=== PATIENT | female | born 1990 | race Caucasian/White ===

== ENCOUNTER 2018-09-13 15:10 | Emergency (ER) ==
[2018-09-13 15:19] VITALS: BP 140/95; TEMP 97; BMI 31.8
[2018-09-13] MEDS ORDERED: ZOFRAN 4 MG/2 ML IVP STA (16:03)
[2018-09-13] MEDS ORDERED: TORADOL IM STA (16:03)
--- NOTE | 2018-09-13 16:11 | ED.PDOC ---
General ED Provider: Dr. RICHARD GALLEGOS Chief Complaint: Tooth Problem Stated Complaint: Severe Dental pain. Patient tearful and complaining of severe pain in face and along Rt Maxilla. Long standing dental issues and advanced dental carries and decay. States h x of Meth abuse. Time Seen by Physician: 16:00 Mode of Arrival: Walk-In Information Source: Patient Exam Limitations: No limitations Nursing and Triage Documentation Reviewed and Agree: Yes Does patient meet sepsis criteria?: No System Inflammatory Response Syndrome: Not Applicable Sepsis Protocol: For patient's 13 years and over: Temp is 96.8 and below OR 101 and greater Pulse >90 BPM Resp >20/minute Acutely Altered Mental Status Are patient's symptoms suggestive of a new infection, such as: -Pneumonia -Skin, Soft Tissue -Endocarditis -UTI -Bone, Joint Infection -Implantable Device -Acute Abdominal Infection -Wound Infection -Meningitis -Blood Stream Catheter Infection -Unknown EENT Complaint Exam - Dental/Oral Complaint/Exam Mechanism of Injury: No known trauma Onset/Duration: 1 wk Symptoms Are: Still present Timing: Constant Initial Severity: Moderate Current Severity: Severe Location: Rt side of Maxilla and facial region Character: Reports: Throbbing Aggravating: Reports: Cold, Chewing, Exertion Alleviating: Reports: None Associated Signs and Symptoms: Reports: Discharge, Foul taste in mouth Related History: Reports: Similar episode, Previous tooth problem Dental/Oral Surgical History: Reports: None Review of Systems - Review Of Systems Constitutional: Reports: No symptoms Eyes: Reports: No symptoms Ears, Nose, Mouth, Throat: Reports: No symptoms, Mouth pain, Mouth swelling Respiratory: Reports: No symptoms Cardiac: Reports: No symptoms GI: Reports: No symptoms : Reports: No symptoms Musculoskeletal: Reports: No symptoms Skin: Reports: No symptoms Neurological: Reports: No symptoms Endocrine: Reports: No symptoms Hematologic/Lymphatic: Reports: No symptoms All Other Systems: Reviewed and Negative Past Medical History - Past Medical History Previously Healthy: Yes Endocrine: Reports: None Cardiovascular: Reports: None Respiratory: Reports: None Hematological: Reports: None Gastrointestinal: Reports: None Genitourinary: Reports: None Neuro/Psych: Reports: None Musculoskeletal: Reports: None Cancer: Reports: None Last Menstrual Period: unsure - Surgical History General Surgical History: Reports: None - Family History Family History: Reports: None - Social History Smoking Status: Current some day smoker Hx Substance Use: Yes (marjuanan) Alcohol Screening: None - Immunizations Tetanus Shot up to Date: Yes Physical Exam - Physical Exam Appearance: Ill-appearing Ill-appearing: Mild Pain Distress: Moderate Eyes: HAFSA ENT: Ears normal Respiratory: Airway patent, Breath sounds clear, Breath sounds equal, Respirations nonlabored Cardiovascular: RRR, Pulses normal, No rub, No murmur GI/: Soft, Nontender, No masses, Bowel sounds normal, No Organomegaly Musculoskeletal: Normal strength, ROM intact, No edema, No calf tenderness Skin: Warm, Dry, Normal color Neurological: Sensation intact, Motor intact, Reflexes intact, Cranial nerves intact, Alert, Oriented Psychiatric: Affect appropriate, Mood appropriate, Anxious Critical Care Note - Critical Care Note Total Time (mins): 30 Course - Course Hematology/Chemistry: 09/13/18 16:20 09/13/18 16:20 Vital Signs: Temp Pulse Resp BP Pulse Ox 09/13/18 15:13 97 F L 88 22 140/95 H 100 Departure - Departure Time of Disposition: 17:30 Disposition: HOME SELF-CARE Discharge Problem: Dental abscess, Methamphetamine abuse Instructions: Dental Abscess (ED) Condition: Fair Pt referred to PMD for follow-up: Yes (See Dentist /oral surgeon for evaluation and treatment) IPMP verified?: No Additional Instructions: Take antibiotics as directed Toradol for pain as needed Prescriptions: Amoxicillin/Potassium Clav [Augmentin 875-125 mg Tab] 1 tab PO Q12HR #14 tablet Ketorolac Tromethamine [Toradol] 10 mg PO Q6H PRN #20 tablet PRN Reason: Dental pain Allergies/Adverse Reactions: Allergies No Known Drug Allergies Adverse Reaction (Verified 09/13/18 15:20) Home Medications: Ambulatory Orders Amoxicillin/Potassium Clav [Augmentin 875-125 mg Tab] 1 tab PO Q12HR #14 tablet 09/13/18 Ketorolac Tromethamine [Toradol] 10 mg PO Q6H PRN #20 tablet 09/13/18 Disposition Discussed With: Patient
[2018-09-13] MEDS ORDERED: TORADOL IVP STA (16:18)
[2018-09-13] MEDS ORDERED: UNASYN 1.5 GM in SODIUM CHLORIDE 50 ML IV STA (16:19)
[2018-09-13] MEDS ORDERED: UNASYN ONE (16:25)
--- NOTE | 2018-09-13 17:16 | CT ---
EXAM: CT maxillofacial with and without IV contrast. HISTORY: Severe facial pain associated with dental abscess. PROCEDURE: Contiguous axial CT images of the face and orbits with and without IV contrast with coron al and sagittal reformats. FINDINGS: There are lucencies surrounding the roots of the right maxillary lateral incisor and left maxillary lateral incisor and second premolar suspicious for tooth abscesses. No soft tissue fluid c ollection or evidence of soft tissue abscess. The temporomandibular joints are maintained. There is mucosal thickening in the paranasal sinuses. The orbits are normal in appearance. Impression: Lucencies surrounding the roots of the bilateral maxillary lateral incisors and left maxi llary second premolar, suspicious for tooth abscesses. Paranasal sinusitis.
== END 2018-09-13 18:00 | disposition home or self-care (01) ==
LOC: ED 15:10
DX: K08.89 Other specified disorders of teeth and supporting structures (principal); K04.7 Periapical abscess without sinus; K02.7 Dental root caries; F15.10 Other stimulant abuse, uncomplicated; F17.210 Nicotine dependence, cigarettes, uncomplicated
CPT/HCPCS: 36415; 80053; 80306; 81001; 84703; 85025; 96366; 96374; 96375; 99283

== ENCOUNTER 2019-03-17 09:22 | Observation (INO) ==
[2019-03-17 10:43] LABS: URINE PREGNANCY TEST NEGATIVE (NEGATIVE)
--- NOTE | 2019-03-17 11:25 | CT ---
EXAM: CT ABDOMEN AND PELVIS HISTORY: Right-sided flank pain TECHNIQUE: CT abdomen and pelvis without intravenous contrast. Images were reconstructed using 3 mm section thickness. Reformations were prepared. COMPARISON: None FINDINGS: There is mild to moderate fat stranding around the right kidney and the upper ureter. Mild hydroneph rosis and upper ureteral dilatation. There is no visible nephrolithiasis or ureteral calculus. Left kidney is normal. Normal urinary bladder. No cruz ascites is seen. Within limits of this unenhanced exam, the liver and spleen are within normal limits. Gallbladder is absent. Pancreas and adrenal glands appear normal. Normal abdominal aorta. Stomach is unremarkabl e. Normal appendix and general bowel gas pattern. Uterus is unremarkable. There is no abdominal wa ll hernia. The bones are within normal limits and lung bases are clear. There is no pneumoperitoneu m. IMPRESSION: There is perinephric fat stranding on the right with mild hydronephrosis and upper ureter al dilatation although no visible ureteral calculus or nephrolithiasis. Urinary bladder appeared nor mal. This may be related to recent passage of a calculus, an occult obstruction or collecting system /renal parenchymal infection. Correlate clinically.
--- NOTE | 2019-03-17 13:16 | ED.PDOC ---
General ED Provider: Dr. SKY WALLACE Chief Complaint: Abdominal Pain Stated Complaint: RIGHT FLANK PAIN RADIATING TO LOWER ABDOMEN HISTORY OF RENAL STONES IN THE PAST. Time Seen by Physician: 09:40 Mode of Arrival: Walk-In Information Source: Patient Exam Limitations: No limitations Primary Care Provider: RICHARD GRANT Nursing and Triage Documentation Reviewed and Agree: Yes Does patient meet sepsis criteria?: No If yes, has appropriate treatment been initiated?: No System Inflammatory Response Syndrome: Not Applicable Sepsis Protocol: For patient's 13 years and over: Temp is 96.8 and below OR 101 and greater Pulse >90 BPM Resp >20/minute Acutely Altered Mental Status Are patient's symptoms suggestive of a new infection, such as: -Pneumonia -Skin, Soft Tissue -Endocarditis -UTI -Bone, Joint Infection -Implantable Device -Acute Abdominal Infection -Wound Infection -Meningitis -Blood Stream Catheter Infection -Unknown Musculoskeletal Complaint Exam Back Pain Complaint/Exam Mechanism of Injury: Reports No known trauma Onset/Duration: 1 DAY Symptoms Are: Still present Timing: Intermittent Episodes Lasting: Hours Initial Severity: Moderate Current Severity: Moderate Location: Reports Discrete (R FLANK) Character: Reports Spasmodic Alleviating: Reports None Associated Signs and Symptoms: Reports Abdominal pain and Flank pain; Denies Bruising, Fever, Weakness, Numbness, Tingling, Bladder incontinence and Bowel incontinence Related History: Reports Similar episode (RENAL STONE) TAD Risk Factors: Reports None AAA Risk Factors: Reports None Cauda Equina Risk Factors: Reports None Epidural Abcess Risk Factors: Reports None Related Surgical History: Reports None Focal Tenderness: No Paraspinal Muscle Tenderness: No Paraspinal Muscle Spasm: No Scoliosis: No Lordosis: No Kyphosis: No SLR Test: Right Negative and Left Negative Hip Motion Testing Pain: Right Negative and Left Negative Focal Weakness: Present None Focal Sensory Loss: Present None Gait: Present Normal Differential Diagnoses: Renal Colic and Other (PYLONEPHRITIS) Review of Systems Review Of Systems Constitutional: Reports No symptoms Eyes: Reports No symptoms Ears, Nose, Mouth, Throat: Reports No symptoms Respiratory: Reports No symptoms Cardiac: Reports No symptoms GI: Reports Abdominal pain : Reports No symptoms Musculoskeletal: Reports Back pain Skin: Reports No symptoms Neurological: Reports No symptoms Endocrine: Reports No symptoms Hematologic/Lymphatic: Reports No symptoms All Other Systems: Reviewed and Negative [facility] Social History Smoking and tobacco status: Current some day smoker Physical Exam Physical Exam Appearance: Well-appearing, No pain distress and Well-nourished Eyes: HAFSA, EOMI and Conjunctiva clear ENT: Ears normal, Nose normal and Oropharynx normal Respiratory: Airway patent, Breath sounds clear, Breath sounds equal and Respirations nonlabored Cardiovascular: RRR, Pulses normal, No rub and No murmur GI/: Soft, Nontender, No masses, Bowel sounds normal and No Organomegaly Musculoskeletal: Normal strength and ROM intact (RIGHT FLANK PAIN LOWER BACK) Skin: Warm, Dry and Normal color Neurological: Sensation intact, Motor intact, Reflexes intact, Cranial nerves intact, Alert and Oriented Psychiatric: Affect appropriate and Mood appropriate Interpretation Radiology Interpretation Radiology Interpretation By: Radiologist Radiology Results: Positive Exam Interpreted: Other (PERINEPHRIC STRANDING) Re-Evaluation Re-Evaluation Time of Re-Evaluation: 13:00 Vital Signs Stable: Yes Appearance: NAD Lungs: Clear Skin: Warm and Dry Neuro: Alert and Oriented X3 CV: RRR Physician Notification Case Discussed Physician Notified: west Time of Notification: 13:52 (admitt start 1 gram azactam bid daily ) Critical Care Note Critical Care Note Total Time (mins): 0 Course Course Hematology/Chemistry: 03/17/19 10:11 03/17/19 10:11 Orders, Labs, Meds: Lab Review 03/17/19 03/17/19 03/17/19 09:56 09:56 10:10 WBC RBC Hgb Hct MCV MCH MCHC RDW Coeff of Candice Plt Count Immature Gran % (Auto) Neut % (Auto) Lymph % (Auto) Powell % (Auto) Eos % (Auto) Baso % (Auto) Immature Gran # (Auto) Neut # (Auto) Lymph # (Auto) Powell # (Auto) Eos # (Auto) Baso # (Auto) Sodium Potassium Chloride Carbon Dioxide Anion Gap BUN Creatinine Estimated GFR (MDRD) BUN/Creatinine Ratio Glucose Calcium Total Bilirubin AST ALT Alkaline Phosphatase Total Protein Albumin Globulin Albumin/Globulin Ratio Urine Color Dark Urine Clarity Cloudy Urine pH 7.0 Ur Specific [place] 1.020 Urine Protein 2+ Urine Glucose (UA) Negative Urine Ketones Negative Urine Blood 1+ Urine Nitrite Positive Urine Bilirubin Negative Urine Urobilinogen 0.2 Ur Leukocyte Esterase 2+ Urine Microscopic RBC 5-10 Urine Microscopic WBC 20-30 Ur Squamous Epith Cells 5-10 Urine Bacteria 4+ Urine Mucus 1+ Urine Test Negative Influ A Molecular Assay Negative by naat Influ B Molecular Assay Negative by naat 03/17/19 03/17/19 10:11 10:11 WBC 13.16 H RBC 4.28 Hgb 12.3 Hct 36.9 L MCV 86.2 MCH 28.7 MCHC 33.3 RDW Coeff of Candice 13.4 Plt Count 180 Immature Gran % (Auto) 0.3 Neut % (Auto) 85.1 Lymph % (Auto) 9.5 L Powell % (Auto) 4.6 Eos % (Auto) 0.3 Baso % (Auto) 0.2 Immature Gran # (Auto) 0.0 Neut # (Auto) 11.2 H Lymph # (Auto) 1.3 Powell # (Auto) 0.6 Eos # (Auto) 0.0 Baso # (Auto) 0.0 Sodium 137.0 Potassium 3.46 L Chloride 103.1 Carbon Dioxide 27.2 Anion Gap 10.16 BUN 10.6 Creatinine 0.62 Estimated GFR (MDRD) 113.00 BUN/Creatinine Ratio 17.09 Glucose 129.7 H Calcium 8.90 Total Bilirubin 0.84 AST 34.0 ALT 37.0 H Alkaline Phosphatase 71.0 Total Protein 6.86 Albumin 3.78 Globulin 3.08 Albumin/Globulin Ratio 1.22 Urine Color Urine Clarity Urine pH Ur Specific Hope Urine Protein Urine Glucose (UA) Urine Ketones Urine Blood Urine Nitrite Urine Bilirubin Urine Urobilinogen Ur Leukocyte Esterase Urine Microscopic RBC Urine Microscopic WBC Ur Squamous Epith Cells Urine Bacteria Urine Mucus Urine Test Influ A Molecular Assay Influ B Molecular Assay Orders Category Date Time Status ACTIVITY .BR with BRP CARE 03/17/19 13:44 Active INTAKE & OUTPUT Q8HR CARE 03/17/19 13:44 Active INTAKE & OUTPUT Q8HR CARE 03/17/19 13:47 Active VITAL SIGNS Q4HR CARE 03/17/19 13:44 Active REGULAR DIET DIETARY 03/17/19 Dinner Ordered CBC W/ AUTO DIFF Stat LAB 03/17/19 10:11 Completed COMPREHENSIVE METABOLIC PANEL DAILY@0600 LAB 03/18/19 06:00 Ordered COMPREHENSIVE METABOLIC PANEL DAILY@0600 LAB 03/19/19 06:00 Ordered COMPREHENSIVE METABOLIC PANEL Stat LAB 03/17/19 10:11 Completed FLU A/B MOLECULAR Stat LAB 03/17/19 10:10 Completed MOLECULAR GROUP A STREP Stat LAB 03/17/19 10:10 Completed URINALYSIS C & S IF INDICATED Stat LAB 03/17/19 09:56 Completed URINE CULTURE Stat LAB 03/17/19 09:56 Received URINE Stat LAB 03/17/19 09:56 Completed Acetaminophen [Tylenol] MEDS 03/17/19 13:44 Active 650 mg PO Q4H PRN Ceftriaxone 1 gm Vial [Rocephin 1 gm Vial] MEDS 03/17/19 13:17 Discontinued 1 gm IV ONCE STA Ceftriaxone/D5w 1 gm Premix [Rocephin 1 gm/50 ml D5w] MEDS 03/18/19 09:00 Active 1 gm in 50 ml IV DAILY Sodium Chloride 0.9% [Sodium Chloride] 1,000 ml MEDS 03/17/19 14:00 Active IV 75 mls/hr CT ABDOMEN/PELVIS WO CONTRAST Stat RADS 03/17/19 10:03 Completed Medications Generic Name Dose Route Start Last Admin Trade Name Freq PRN Reason Stop Dose Admin Acetaminophen 650 mg 03/17/19 13:44 Tylenol PO Q4H PRN Mild Pain Sodium Chloride 1,000 mls @ 75 mls/hr 03/17/19 14:00 Sodium Chloride IV .[id number] BATOOL CEFTRIAXONE/D5W 1 GM PREMIX 1 gm in 50 mls @ 75 mls/hr 03/18/19 09:00 Rocephin 1 Gm/50 Ml D5w IV 03/21/19 08:59 DAILY BATOOL Discontinued Medications Generic Name Dose Route Start Last Admin Trade Name Freq PRN Reason Stop Dose Admin Ceftriaxone Sodium 1 gm 03/17/19 13:17 03/17/19 13:38 Rocephin 1 Gm Vial IV 03/17/19 13:18 1 gm ONCE STA Administration Vital Signs: Temp Pulse Resp BP Pulse Ox 03/17/19 13:41 100 F H 03/17/19 09:38 98.2 F 96 H 18 104/71 99 Discharge Plan Discharge Patient Disposition: ADMITTED INPATIENT Discharge Problem: Abdominal pain, Backache, Pyelonephritis ED Provider: SKY WALLACE Condition: Good
[2019-03-17] MEDS ORDERED: ROCEPHIN 1 GM VIAL IV STA (13:17)
[2019-03-17 15:07] VITALS: BMI 30.9
[2019-03-17] MEDS: TORADOL IVP PRN ×2 (15:41→23:42)
[2019-03-17] MEDS: AZACTAM 1 GM in SODIUM CHLORIDE 50 ML IV SCH ×2 (15:44→20:29)
[2019-03-17] MEDS: SODIUM CHLORIDE 1,000 ML IV SCH (15:44)
[2019-03-17] MEDS: TYLENOL PO PRN (19:19)
[2019-03-18] MEDS: TYLENOL PO PRN ×2 (05:02→14:11)
[2019-03-18] MEDS: AZACTAM 1 GM in SODIUM CHLORIDE 50 ML IV SCH ×2 (08:40→20:46)
[2019-03-18] MEDS: SODIUM CHLORIDE 1,000 ML IV SCH ×2 (08:41→20:50)
[2019-03-18] MEDS: TORADOL IVP PRN ×2 (08:43→18:27)
--- NOTE | 2019-03-18 09:56 | PCM.PROG ---
Attending Provider: ATTENDING PROVIDER: Dr. DEE LOVETT This patient is seen with Coby Wells, Nurse Practitioner. DATE OF SERVICE: 03/18/19 SUBJECTIVE: This 28 year old /WHITE F was hospitalized 03/17/19. The patient is resting comfortably in bed. Temperature is 99. No nausea or vomiting. She is complaining of right-sided pain. She has been getting up and going outside on her own. The patient admitted to nursing staff that she routinely uses meth. She has had questionable behavior since admission. Liver enzymes are elevated today. REVIEW OF SYSTEMS: CONSTITUTIONAL: No night sweats. No fatigue, malaise, lethargy. No fever or chills. HEENT: Eyes: No visual changes. No eye pain. No eye discharge. ENT: No runny nose. No epistaxis. No sinus pain. No odynophagia. No congestion. RESPIRATORY: No cough, no congestion. No hemoptysis. No shortness of breath. CARDIOVASCULAR: No angina symptoms. No CHF symptoms. No atypical chest pain for CAD. No palpitations. No orthopnea.. GASTROINTESTINAL: Positive for right flank pain. No nausea or vomiting. No diarrhea or constipation. No hematemesis. No hematochezia. GENITOURINARY: No urgency. No frequency. No dysuria. No hematuria. No obstructive symptoms. No discharge. No pain. No significant abnormal bleeding. MUSCULOSKELETAL: No musculoskeletal pain; no joint swelling. NEUROLOGICAL: Awake, alert, oriented to time, place and person. No headache. No neck pain. No syncope. No seizures. No dizziness. PSYCHIATRIC: Not anxious. No depression. No suicidal thoughts. No homicidal thoughts. SKIN: No rash. No lesions. No wounds. ENDOCRINE: No unexplained weight loss. No weight gain. HEMATOLOGIC/LYMPHATIC: No anemia. No purpura. No petechiae. No prolonged or excessive bleeding. No palpable lymph nodes. PHYSICAL EXAMINATION: GENERAL: The patient is awake, alert and oriented, lying/sitting in bed in no distress. VITAL SIGNS: Temperature 99.5 F, Pulse 103, Respiratory Rate 15, BP 105/61, Pulse Ox 100% HEENT: Head normocephalic, atraumatic. Eyes: Extraocular muscles are intact. Pupils are equal, round and reactive to light and accommodation. Ears: No lesions. Nose appeared normal. Throat: No exudate or erythema. NECK: Supple. No JVD, no carotid bruit. No lymphadenopathy or thyromegaly. LUNGS: Clear to auscultation. Percussion note normal. Chest symmetrical. HEART: S1, S2, no S3. No murmurs. No cyanosis or clubbing. No ascites. Pulses: Dorsalis pedis and posterior tibial pulses +1 to +2 both sides. ABDOMEN: Soft. Non-tender. Bowel sounds active. No CVA tenderness. No mass felt. EXTREMITIES: No edema. Full range of motion of all extremities, equal. NEUROLOGIC: No focal deficit. Cranial nerves II through XII are grossly intact. No headache, no double vision or headache. SKIN: Not dry. Intact. Turgor-normal. LYMPHATIC: No palpable lymph nodes/no lymphedema. MUSCULOSKELETAL: Normal joints with no swelling. Muscle tone is normal. LAB REVIEW: 03/18/19 06:04 03/18/19 06:04 03/18/19 06:04: WBC 11.61 H, RBC 4.15 L, Hgb 11.9 L, Hct 35.4 L, MCV 85.3, MCH 2 8.7, MCHC 33.6, RDW Coeff of Candice 13.4, Plt Count 156, Immature Gran % (Auto) 0.3, Neut % (Auto) 85.6, Lymph % (Auto) 6.8 L, [place] % (Auto) 6.5, Eos % (Auto) 0.5, Baso % (Auto) 0.3, Immature Gran # (Auto) 0.0, Neut # (Auto) 9.9 H, Lymph # (Auto) 0.8, [place]berson # (Auto) 0.8, Eos # (Auto) 0.1, Baso # (Auto) 0.0 03/18/19 06:04: Sodium 135.3, Potassium 4.10, Chloride 103.5, Carbon Dioxide 25.2, Anion Gap 10.70, BUN 13.0, Creatinine 0.62, Estimated GFR (MDRD) 113.00, BUN/Creatinine Ratio 20.96, Glucose 127.5 H, Calcium 8.87, Total Bilirubin 1.02, AST 108.2 H D, ALT 103.9 H D, Alkaline Phosphatase 127.6 H D, Total Protein 6.68, Albumin 3.47 L, Globulin 3.21, Albumin/Globulin Ratio 1.08 03/17/19 10:11: Sodium 137.0, Potassium 3.46 L, Chloride 103.1, Carbon Dioxide 27.2, Anion Gap 10.16, BUN 10.6, Creatinine 0.62, Estimated GFR (MDRD) 113.00, BUN/Creatinine Ratio 17.09, Glucose 129.7 H, Calcium 8.90, Total Bilirubin 0.84, AST 34.0, ALT 37.0 H, Alkaline Phosphatase 71.0, Total Protein 6.86, Albumin 3. 78, Globulin 3.08, Albumin/Globulin Ratio 1.22 03/17/19 10:11: WBC 13.16 H, RBC 4.28, Hgb 12.3, Hct 36.9 L, MCV 86.2, MCH 28.7, MCHC 33.3, RDW Coeff of Candice 13.4, Plt Count 180, Immature Gran % (Auto) 0.3, Neut % (Auto) 85.1, Lymph % (Auto) 9.5 L, Culberson % (Auto) 4.6, Eos % (Auto) 0.3, Baso % (Auto) 0.2, Immature Gran # (Auto) 0.0, Neut # (Auto) 11.2 H, Lymph # (Auto) 1.3, [place]on # (Auto) 0.6, Eos # (Auto) 0.0, Baso # (Auto) 0.0 03/17/19 10:10: Influ A Molecular Assay Negative by naat, Influ B Molecular Assay Negative by naat 03/17/19 09:56: Urine Test Negative 03/17/19 09:56: Urine Color Dark, Urine Clarity Cloudy, Urine pH 7.0, Ur Specific [place] 1.020, Urine Protein 2+, Urine Glucose (UA) Negative, Urine Ke tones Negative, Urine Blood 1+, Urine Nitrite Positive, Urine Bilirubin Negative, Urine Urobilinogen 0.2, Ur Leukocyte Esterase 2+, Urine Microscopic RBC 5-10, Urine Microscopic WBC 20-30, Ur Squamous Epith Cells 5-10, Urine Bacteria 4+, Urine Mucus 1+ ASSESSMENT: Please see below. 1. Acute right pyelonephritis. 2. Fever. 3. Dehydration - improved. 4. Admitted history of drug abuse. 5. Elevated liver function. PLAN: 1. Urine drug screen. 2. Hepatitis panel. 3. Liver ultrasound. Plan and coordination of the patient's care discussed in the presence of Senior Quality Engineer and nurse. CONDITION: Stable SCRIBED BY: STEPHANIE SHAKNS National Account Manager scribed while in presence of service performed by Dr. Lovett/Coby Wells APRN on 03/18/19 ([id number])
[2019-03-18] MEDS: ROCEPHIN 1 GM/50 ML D5W 1 GM/50 ML BAG IV SCH (09:58)
--- NOTE | 2019-03-18 16:07 | US ---
EXAM: ULTRASOUND ABDOMEN LIMITED HISTORY: Elevated liver enzymes FINDINGS: Ultrasound abdomen, limited. Melendrez-scale ultrasound and color Doppler was performed. Live r size was measured at 12.4 cm, within normal limits. The perivascular spacers are echogenic which c an be seen in cases of acute hepatitis. There is no ascites and the liver was otherwise grossly unre markable. The main portal vein is patent and hepatopedal. Gallbladder has been removed. Common bile duct diameter within normal limits at 0.53 cm. Visualized pancreas was within normal limits. Survey of the right kidney was unremarkable IMPRESSION: 1. Echogenic periportal spaces can be seen in acute hepatitis. Correlate clinically. The liver was otherwise unremarkable. No ascites. 2. Post cholecystectomy state with no common bile duct dilatation.
[2019-03-19] MEDS: TYLENOL PO PRN (01:18)
[2019-03-19 04:47] VITALS: BP 99/59; TEMP 98.3
[2019-03-19] MEDS: TORADOL IVP PRN (04:57)
[2019-03-19] MEDS: AZACTAM 1 GM in SODIUM CHLORIDE 50 ML IV SCH (08:33)
[2019-03-19] MEDS: ROCEPHIN 1 GM/50 ML D5W 1 GM/50 ML BAG IV SCH (09:26)
--- NOTE | 2019-03-19 09:35 | PCM.PROG ---
Attending Provider: ATTENDING PROVIDER: Dr. DEE BELCHER This patient is seen with Coby Wells, Nurse Practitioner. DATE OF SERVICE: 03/19/19 SUBJECTIVE: This 28 year old /WHITE F was hospitalized 03/17/19. The patient has not had any fever through the night. She has been out 2 to 3 times despite being advised to stay in her room. Urine drug screen positive for methamphetamine and amphetamines yesterday. Liver ultrasound shows possible hepatitis C. She has been eating well. REVIEW OF SYSTEMS: CONSTITUTIONAL: Fatigue. No night sweats. No malaise, lethargy. No fever or chills. HEENT: Eyes: No visual changes. No eye pain. No eye discharge. ENT: No runny nose. No epistaxis. No sinus pain. No odynophagia. No congestion. RESPIRATORY: No cough, no congestion. No hemoptysis. No shortness of breath. CARDIOVASCULAR: No angina symptoms. No CHF symptoms. No atypical chest pain for CAD. No palpitations. No orthopnea.. GASTROINTESTINAL: No abdominal pain. No nausea or vomiting. No diarrhea or constipation. No hematemesis. No hematochezia. GENITOURINARY: No urgency. No frequency. No dysuria. No hematuria. No obstructive symptoms. No discharge. No pain. No significant abnormal bleeding. MUSCULOSKELETAL: No musculoskeletal pain; no joint swelling. NEUROLOGICAL: Awake, alert, oriented to time, place and person. No headache. No neck pain. No syncope. No seizures. No dizziness. PSYCHIATRIC: Not anxious. No depression. No suicidal thoughts. No homicidal thoughts. SKIN: No rash. No lesions. No wounds. ENDOCRINE: No unexplained weight loss. No weight gain. HEMATOLOGIC/LYMPHATIC: No anemia. No purpura. No petechiae. No prolonged or excessive bleeding. No palpable lymph nodes. PHYSICAL EXAMINATION: GENERAL: The patient is awake, alert and oriented, lying/sitting in bed in no distress. VITAL SIGNS: Temperature 98.3 F, Pulse 82, Respiratory Rate 16, BP 99/59, Pulse Ox 99% HEENT: Head normocephalic, atraumatic. Eyes: Extraocular muscles are intact. Pupils are equal, round and reactive to light and accommodation. Ears: No lesions. Nose appeared normal. Throat: No exudate or erythema. NECK: Supple. No JVD, no carotid bruit. No lymphadenopathy or thyromegaly. LUNGS: Clear to auscultation. Percussion note normal. Chest symmetrical. HEART: S1, S2, no S3. No murmurs. No cyanosis or clubbing. No ascites. Puls es: Dorsalis pedis and posterior tibial pulses +1 to +2 both sides. ABDOMEN: Soft. Non-tender. Bowel sounds active. No CVA tenderness. No mass felt. EXTREMITIES: No edema. Full range of motion of all extremities, equal. NEUROLOGIC: No focal deficit. Cranial nerves II through XII are grossly intact. No headache, no double vision or headache. SKIN: Not dry. Intact. Turgor-normal. LYMPHATIC: No palpable lymph nodes/no lymphedema. MUSCULOSKELETAL: Normal joints with no swelling. Muscle tone is normal. LAB REVIEW: 03/19/19 06:55 03/19/19 06:55 03/19/19 06:55: WBC 4.83 D, RBC 3.57 L, Hgb 10.2 L, Hct 31.1 L, MCV 87.1, MCH 28.6, MCHC 32.8, RDW Coeff of Candice 13.4, Plt Count 115 L, Immature Gran % (Auto) 0.2, Neut % (Auto) 72.6, Lymph % (Auto) 16.6, Bates % (Auto) 8.7, Eos % (Auto) 1.7, Baso % (Auto) 0.2, Immature Gran # (Auto) 0.0, Neut # (Auto) 3.5, Lymph # (Auto) 0.8, Bates # (Auto) 0.4, Eos # (Auto) 0.1, Baso # (Auto) 0.0 03/19/19 06:55: Sodium 135.4, Potassium 3.97, Chloride 107.2 H, Carbon Dioxide 22.2, Anion Gap 9.97, BUN 12.9, Creatinine 0.54 L, Estimated GFR (MDRD) 133.00, BUN/Creatinine Ratio 23.88, Glucose 115.0 H, Calcium 8.48, Total Bilirubin 0.56, AST 75.7 H D, ALT 100.7 H, Alkaline Phosphatase 135.5 H, Total Protein 5.81 L, Albumin 2.90 L, Globulin 2.91, Albumin/Globulin Ratio 0.99 03/18/19 08:59: Hepatitis A IgM Ab Negative, Hep Bs Antigen Negative, Hep B Core IgM Ab Negative, Hep C Ab Signal/Cutoff 1.6 H 03/18/19 08:45: Urine Opiates Screen Negative, Ur Oxycodone Screen Negative, Urine Methadone Screen Negative, Ur Propoxyphene Screen Negative, Ur Barbiturates Screen Negative, U Tricyclic Antidepress Negative, Ur Phencyclidine Scrn Negative, Ur Amphetamine Screen Positive, U Methamphetamines Scrn Positive, U Benzodiazepines Scrn Negative, Urine Cocaine Screen Negative, U Cannabinoids Screen Negative 03/18/19 06:04: Total Bilirubin 0.97, Direct Bilirubin 0.00, AST 105.7 H, ALT 102.3 H, Alkaline Phosphatase 124.1, Total Protein 6.50, Albumin 3.31 L ASSESSMENT: Please see below. 1. Acute right pyelonephritis. 2. Fever, resolved. 3. Dehydration - resolved 4. Admitted history of drug abuse. Positive UDS for methamphetamines. 5. Positive hepatitis C antibody. PLAN: 1. Appointment with [facility] on Friday. 2. Macrobid 100 mg b.i.d. times 7 days. 3. Will refer the patient to Dr. Correa. EDUCATION: Discussed importance of keeping followup appointment especially regarding liver status. The patient declines referral for treatment of drug abuse. Smoking cessation advised. Plan and coordination of the patient's care discussed in the presence of Anesthesiologist Physician and nurse. CONDITION: Stable. SCRIBED BY: STEPHANIE SHANKS Trade Clerk scribed while in presence of service performed by Dr. Belcher/Coby Wells APRN on 03/19/19 ([id number])
--- NOTE | 2019-03-19 11:02 | CM.DICTOOL ---
ADMISSION: 03/17/19 13:49 DISCHARGE: 2018 DATE OF SERVICE: 03/19/19 FINAL DIAGNOSIS PYELONEPHRITIS DEHYDRATION UTI, E-COLI POSSIBLE ACUTE HEPATITIS PER ULTRASOUND HEPATITIS C PER LAB TEST ELEVATED LFT'S HISTORY OF DRUG ABUSE WITH POSITIVE UDS CHOLECYSTECTOMY LAST VITALS Temp Pulse Resp BP Pulse Ox 98.3 F 82 16 99/59 L 99 03/19/19 04:45 03/19/19 04:45 03/19/19 04:45 03/19/19 04:45 03/19/19 04:45 TAKE THESE MEDICATIONS AT HOME MACROBID 100 MG BID FOR 7 DAYS ALLERGIES No Known Drug Allergies Adverse Reaction (Verified 03/17/19 09:45) DISCONTINUED MEDICATIONS NONE NEW PRESCRIPTIONS: MACROBID 100 MG BID FOR 7 DAYS SMOKING: ENCOURAGED TO STOP SMOKING DISEASE SPECIFIC EDUCATION: SUBSTANCE ABUSE COUNSELING ENCOURAGED HEPATITIS C INFORMATION PROVIDED APPOINTMENTS, SCHEDULED AND PENDING URINARY TRACT INFECTION LAB REVIEW: 03/19/19 06:55 03/19/19 06:55 03/19/19 06:55: WBC 4.83 D, RBC 3.57 L, Hgb 10.2 L, Hct 31.1 L, MCV 87.1, MCH 28.6, MCHC 32.8, RDW Coeff of Candice 13.4, Plt Count 115 L, Immature Gran % (Auto) 0.2, Neut % (Auto) 72.6, Lymph % (Auto) 16.6, [place] % (Auto) 8.7, Eos % (Auto) 1.7, Baso % (Auto) 0.2, Immature Gran # (Auto) 0.0, Neut # (Auto) 3.5, Lymph # (Auto) 0.8, [place] # (Auto) 0.4, Eos # (Auto) 0.1, Baso # (Auto) 0.0 03/19/19 06:55: Sodium 135.4, Potassium 3.97, Chloride 107.2 H, Carbon Dioxide 22.2, Anion Gap 9.97, BUN 12.9, Creatinine 0.54 L, Estimated GFR (MDRD) 133.00, BUN/Creatinine Ratio 23.88, Glucose 115.0 H, Calcium 8.48, Total Bilirubin 0.56, AST 75.7 H D, ALT 100.7 H, Alkaline Phosphatase 135.5 H, Total Protein 5.81 L, Albumin 2.90 L, Globulin 2.91, Albumin/Globulin Ratio 0.99 03/18/19 08:59: Hepatitis A IgM Ab Negative, Hep Bs Antigen Negative, Hep B Core IgM Ab Negative, Hep C Ab Signal/Cutoff 1.6 H IMAGE REVIEW: DISCHARGE HOME DIET: REGULAR TOLERATED ACTIVITY: RESUME TOLERATED APPOINTMENT: HOSPITAL FOLLOW-UP WITH TD LAM APRN ON March AT 3:30 PM OFFICE IS LOCATED AT [address] [place] [address] PHONE NUMBER: [phone] YOU WILL BE CALLED AT HOME BY CASE MANAGEMENT WITH AN APPOINTMENT FOR AN INFECTIOUS DISEASE SPECIALIST. PATIENT'S PHONE NUMBER VERIFIED PRIOR TO DISCHARGE. MISS LATHAM IS ALERT AND ORIENTED X 4. SHE IS INDEPENDENT WITH ACTIVITIES OF [facility]. SHE IS AMBULATORY IN THE HALLWAYS WITHOUT USE OF ASSISTIVE DEVICE. SHE DENIES ABDOMINAL PAIN OR NAUSEA. SHE HAS BEEN CONSUMING 100% OF HER MEALS AND NUMEROUS SNACKS DURING THE DAY/NIGHT. SHE DENIES PAIN OR BURNING WITH URINATION. SHE IS CONTINENT OF URINE AND BOWEL. SHE IS AGREEABLE WITH PLANS FOR DISCHARGE AND HAS BEEN ADVISED OF THE IMPORTANCE OF KEEPING ALL FOLLOW-UP APPOINTMENTS. SHE VOICES SHE WILL FOLLOW THROUGH WITH APPOINTMENTS. HYDRATION STATUS IS IMPROVED. SKIN IS INTACT AND FREE OF DECUBITUS ULCERS. MD LEYLA BRENNER APRN
[2019-03-19] MEDS: SODIUM CHLORIDE 1,000 ML IV SCH (11:47)
--- NOTE | 2019-03-31 10:20 | PN ---
DATE OF SERVICE: 03/17/19 - ADMISSION NOTE SUBJECTIVE: 28-year-old female admitted to the hospital through the emergency room as me being hospitalist with complaint of having flank pain, fever and chills. CT scan of the abdomen and pelvis revealed evidence of acute pyelonephritis with possible obstruction. The possibility was raised that the patient had probably passed a stone. In any case, the patient's UA was abnormal with leukocyte estrase, nitrites positive, with some blood along with WBC count of 13,000 with normal creatinine and BUN. PHYSICAL EXAMINATION: HEENT: Head normocephalic, atraumatic. Eyes: Extraocular muscles are intact. Pupils are equal, round and reactive to light and accommodation. Ears: No lesions. Nose appeared normal. Throat: No exudate or erythema. NECK: Supple. No JVD, no carotid bruit. No lymphadenopathy or thyromegaly. LUNGS: Clear to auscultation. Percussion note normal. Chest symmetrical. HEART: S1, S2, no S3. No murmurs. No cyanosis or clubbing. No ascites. Pulses: Dorsalis pedis and posterior tibial pulses +1 to +2 bilaterally. ABDOMEN: Soft. Nontender. Bowel sounds active. No CVA tenderness. No mass felt. EXTREMITIES: No edema. Full range of motion of all extremities, equal. UROGENITAL: Reported by ER physician. NEUROLOGIC: No focal deficit. Cranial nerves II through XII are grossly intact. No headache, no double vision or headache. SKIN: Not dry. Intact. Turgor - normal. LYMPHATIC: No palpable lymph nodes/no lymphedema. MUSCULOSKELETAL: Normal joints with no swelling. Muscle tone is normal. ASSESSMENT: 1. ACUTE PYELOEPHRITIS 2. DEHYDRATION PLAN: 1. Give Rocephin. 2. As discussed, will add Azactam 1 gm q.12. 3. Nursing staff had called me for admission. The patient was on the floor. The patient is also going to be given IV fluids 75 cc/hr. TIME SPENT: More than 30 minutes. Plan and coordination of the patient's care discussed in the presence of nurse. FÉLIX
--- NOTE | 2019-03-31 14:20 | PN ---
DATE OF SERVICE: 03/18/19 SUBJECTIVE: The patient was seen and examined with the nurse practitioner. The patient's fever is low grade. She still wants to go out and smoke. The patient was positive for a lot of drugs. Strongly advised to quit smoking and drugs. Explained about pyelonephritis in detail and its complications. Continue antibiotics and IV fluids. Encourage the patient to stay in the house. The patient is going to be discharged to be seen in the [facility]. She is agreeable to that. CONDITION: Stable. TIME SPENT: More than 30 minutes. Plan and coordination of the patient's care discussed in the presence of nurse. FÉLIX
--- NOTE | 2019-04-01 10:56 | PN ---
DATE OF SERVICE: 03/19/19 SUBJECTIVE: The patient was seen and examined with the Nurse Practitioner and then later on I went and talked to the patient. The patient's hepatitis profile seems to be positive. Further testing would be done to confirm it. She is going [facility] who is infectious disease specialist in [place]. Dr. Tao doesn't see anybody with Hepatitis C out of [facility]. The patient was explained about Hepatitis C, it's implications and what precautions to take not to spread it. Literature on Hepatitis C given. The patient is to be followed by Vaishnavi Mahoney as outpatient in [facility]. Her acute pyelonephritis seems to be under control. She needs followup. Her condition is otherwise stable. She is noncompliant. Didn't have a primary physician for a while. Heavy smoker and abuses drugs. Strongly advised to have good lifestyle. CONDITION: Stable PROGNOSIS: Guarded. TIME SPENT: More than 30 minutes. Plan and coordination of the patient's care discussed in the presence of nurse. FÉLIX
--- NOTE | 2019-04-01 11:20 | DS ---
DATE OF SERVICE: 03/19/19 FINAL DIAGNOSIS : PYELONEPHRITIS DEHYDRATION UTI, E-COLI POSSIBLE ACUTE HEPATITIS PER ULTRASOUND HEPATITIS C PER LAB TEST ELEVATED LFT'S HISTORY OF DRUG ABUSE WITH POSITIVE UDS CHOLECYSTECTOMY LAST VITALS: Temp Pulse Resp BP Pulse Ox 98.3 F 82 16 99/59 L 99 03/19/19 04:45 03/19/19 04:45 03/19/19 04:45 03/19/19 04:45 03/19/19 04:45 DISCHARGE INSTRUCTIONS: DISCHARGE HOME. APPOINTMENT:HOSPITAL FOLLOW-UP WITH VAISHNAVI MAHONEY APRN ON March AT 3:30 PM OFFICE IS LOCATED AT [facility] [address] [place] [address] PHONE NUMBER: [phone]. YOU WILL BE CALLED AT HOME BY CASE MANAGEMENT WITH AN APPOINTMENT FOR AN INFECTIOUS DISEASE SPECIALIST. PATIENT'S PHONE NUMBER VERIFIED PRIOR TO DISCHARGE. TAKE THESE MEDICATIONS AT HOME: MACROBID 100 MG BID FOR 7 DAYS ALLERGIES: No Known Drug Allergies Adverse Reaction (Verified 03/17/19 09:45) DISCONTINUED MEDICATIONS: NONE NEW PRESCRIPTIONS: MACROBID 100 MG BID FOR 7 DAYS SMOKING: ENCOURAGED TO STOP SMOKING DISEASE SPECIFIC EDUCATION: SUBSTANCE ABUSE COUNSELING ENCOURAGED HEPATITIS C INFORMATION PROVIDED APPOINTMENTS, SCHEDULED AND PENDING URINARY TRACT INFECTION LAB REVIEW: 03/19/19 06:55 03/19/19 06:55 03/19/19 06:55: WBC 4.83 D, RBC 3.57 L, Hgb 10.2 L, Hct 31.1 L, MCV 87.1, MCH 28.6, MCHC 32.8, RDW Coeff of Candice 13.4, Plt Count 115 L, Immature Gran % (Auto) 0.2, Neut % (Auto) 72.6, Lymph % (Auto) 16.6, [place] % (Auto) 8.7, Eos % (Auto) 1.7, Baso % (Auto) 0.2, Immature Gran # (Auto) 0.0, Neut # (Auto) 3.5, Lymph # (Auto) 0.8, [place] # (Auto) 0.4, Eos # (Auto) 0.1, Baso # (Auto) 0.0 03/19/19 06:55: Sodium 135.4, Potassium 3.97, Chloride 107.2 H, Carbon Dioxide 22.2, Anion Gap 9.97, BUN 12.9, Creatinine 0.54 L, Estimated GFR (MDRD) 133.00, BUN/Creatinine Ratio 23.88, Glucose 115.0 H, Calcium 8.48, Total Bilirubin 0.56, AST 75.7 H D, ALT 100.7 H, Alkaline Phosphatase 135.5 H, Total Protein 5.81 L, Albumin 2.90 L, Globulin 2.91, Albumin/Globulin Ratio 0.99 03/18/19 08:59: Hepatitis A IgM Ab Negative, Hep Bs Antigen Negative, Hep B Core IgM Ab Negative, Hep C Ab Signal/Cutoff 1.6 H DIET: REGULAR TOLERATED ACTIVITY: RESUME TOLERATED HOSPITAL COURSE: The patient was hospitalized with acute pyelonephritis. She was given IV Rocephin and Azactam. Condition improved in two days she was afebrile. Her appetite improved and she felt a lot better. She was good enough to go out and smoke. The patient's drug screen was positive for street drugs. The liver enzymes are abnormal. Ultrasound of the liver showed acute hepatitis. Hepatitis profile showed possibility of hepatitis C. The patient was made aware of these findings. She was explained about Hepatitis C and it's prognosis with possibility of having liver cancer later on. It was also explained about hepatitis C status which could also transmit to other people. Mode of transmission discussed with the patient in detail, literature for Hepatitis C was given. Also told her I'm not sure whether she is Hepatitis C definitely or not but further testing would be done and she is going to be referred to Dr. Austin in [place], Infectious Disease Specialist as Dr. Tao doesn't see any out of [facility] patient's who has Hepatis C. The patient agreed to go to Dr. Austin. The patient doesn't have a primary care. I had taken her as a hospitalist so the patient is going to be seen by Vaishnavi Mahoney who works under Dr. Neil on Friday. She was strongly advised to followup with Vaishnavi Mahoney who can arrange for her followup and further investigations. The patient's lifestyle is very poor. She was advised to change her lifestyle. Counseling for smoking done. The patient had e-coli in her urine. CONDITION: Stable. TIME SPENT: More than 60 minutes. MTDD
--- NOTE | 2019-04-01 11:21 | PN ---
03/17/19: Level 5 03/18/19: Extensive 03/19/19: D as in discharge MTDD
== END 2019-03-19 13:10 | disposition home or self-care (01) ==
LOC: ED 09:38 → INTOOBSV 13:49 → MEDSURG B 13:49
PROVIDERS: ADMIT Internal Medicine; ATTEND Internal Medicine
DX: N39.0 Urinary tract infection, site not specified; E86.0 Dehydration; B96.20 Unspecified Escherichia coli [E. coli] as the cause of diseases classified elsewhere; R10.9 Unspecified abdominal pain; R50.9 Fever, unspecified; N10 Acute pyelonephritis